=== PATIENT | female | born 1970 | race Caucasian/White ===

== ENCOUNTER 2017-01-02 20:58 | Emergency (ER) | payer MEDICAID ==
[~2017-01-02] VITALS: Ht 167.6 cm; Wt 71.0 kg
[~2017-01-02 20:58] MED LIST: AMO500 PO; DENIES MEDS; HYDR-3498 PO; NAPR-260 PO
[2017-01-02 21:26] VITALS: Ht 167.6 cm; Wt 71.0 kg
[2017-01-02] MEDS ORDERED: IBUPROFEN 600 MG TAB PO ONE (22:30)
--- NOTE | 2017-01-02 23:09 | RADRPT ---
PROCEDURE: XR Left Ankle. CLINICAL INDICATION: Trauma, pain TECHNIQUE: 4 views of the left ankle were performed. COMPARISON: None. FINDINGS: There is lateral soft tissue swelling. No fracture or dislocation is seen. IMPRESSION: Lateral soft tissue swelling. No fracture seen. RPTAT: HJES .Kemar Phillips MD, Date Time Electronically viewed and signed by .Kemar Phillips MD, on 01/02/2017 23:08 .S/
[2017-01-02] MEDS ORDERED: IBUP-1542 PO (23:12)
[2017-01-02] MEDS ORDERED: CEPH-443 PO (23:12)
[2017-01-02] MEDS ORDERED: BACI28.34 TOP (23:12)
--- NOTE | 2017-01-02 23:17 | ERD ---
ER Documentation Chief Complaint Date/Time DATE: 01/02/17 TIME: 23:15 Chief Complaint l ankle pain since tuesday some swelling noted + distal CMS HPI 46-year-old female comes in with left lateral ankle pain that started 3 days ago when she was pulling on a chair and fell onto the side of her ankle then. Since then she has had swelling with bruising, she describes as achy, localized pain, worse with any weightbearing and better at rest. She has had some redness to the ankle. She has not had any fevers or chills. Denies any other injuries. ROS All systems reviewed and are negative except as per history of present illness. Medications Home Meds Active Scripts Bacitracin* (Bacitracin Zinc Oint*) 28.35 Gm Oint, 1 APPLIC TOP BID, #1 TUB APPLI TO Prov:ELDA DURANT PA-C 01/02/17 Cephalexin* (Keflex*) 500 Mg Capsule, 500 MG PO QID for 5 Days, CAP Prov:ELDA DURANT PA-C 01/02/17 Ibuprofen* (Motrin*) 600 Mg Tab, 600 MG PO Q6, #30 TAB Prov:ELDA DURANT PA-C 01/02/17 Naproxen* (Naprosyn*) 500 Mg Tablet, 500 MG PO BID Y for PAIN AND/OR INFLAMMATION, #30 TAB Prov:PAIGE MANCIA PA-C 02/04/16 Hydrocodone Bit-Acetaminophen* ([place]*) 5-325 Mg Tab, 1 TAB PO Q6 Y for PAIN, # 10 TAB Prov:ELDA DURANT PA-C 02/14/15 Amoxicillin* (Amoxicillin*) 500 Mg Cap, 500 MG PO TID for 7 Days, CAP Prov:ELDA DURANT PA-C 02/14/15 Reported Medications [Denies Meds] No Conflict Check 10/27/10 Allergies Allergies: Coded Allergies: No Known Drug Allergy (Verified Allergy, Mild, 02/04/16) PMhx/Soc History of Surgery: Yes (TUBAL LIGATION-3 YRS AGO) Anesthesia Reaction: No Hx Neurological Disorder: No Hx Respiratory Disorders: No Hx Cardiac Disorders: No Hx Psychiatric Problems: No Hx Miscellaneous Medical Probl: No Hx Alcohol Use: No Hx Substance Use: No Hx Tobacco Use: No Physical Exam Vitals Vital Signs Date Time Temp Pulse Resp B/P Pulse Ox O2 Delivery O2 Flow Rate FiO2 01/02/17 21:26 97.6 66 18 136/72 98 Physical Exam General: Well-developed, well-nourished. The patient appears in no acute distress. HEENT: Head is normocephalic, atraumatic. No scleral icterus. Neck: Supple. Nontender. Lungs: Clear to auscultation. Normal air movement. Heart: Regular rate and rhythm. S1 and S2 are normal. No murmurs, gallops, or rubs. Abdomen: Nondistended. Extremities: Patient's left lateral ankle has swelling, there is ecchymosis. There is erythema to the site of the injury. No fluctuance. Achilles is intact. She is able to flex and dorsiflex. Neurologic: Alert and oriented 3. No focal deficits. Normal speech and gait. Skin: Normal turgor. No rash or lesions. Results 24 hrs Current Medications Medications (Trade) Dose Ordered Sig/Man Route PRN Reason Start Time Stop Time Status Last Admin Dose Admin Ibuprofen (Motrin) 600 mg ONCE ONCE PO 01/02/17 22:30 01/02/17 22:31 DC 01/02/17 22:34 DIAGNOSTIC IMAGING REPORT Patient: JESSICA WOODS : 1970 Age: 46 Sex: F MR #: [id number] DOS: 01/02/172221 Ordering MD: ELDA DURANT PA-C Location: [facility] Room/Bed: PROCEDURE: XR Left Ankle. CLINICAL INDICATION: Trauma, pain TECHNIQUE: 4 views of the left ankle were performed. COMPARISON: None. FINDINGS: There is lateral soft tissue swelling. No fracture or dislocation is seen. IMPRESSION: Lateral soft tissue swelling. No fracture seen. RPTAT: HJES .Kemar Phillips MD, Date Time Electronically viewed and signed by .Kemar Phillips MD, on 01/02/2017 23:08 .S/ CC: ELDA DURANT PA-C Procedures/MDM ED course: Patient's left ankle was wrapped with an Nav bandage. Medical decision making: This 46-year-old female comes in with contusion to her left lateral ankle, she states that she was pulling something in the chair fell over hitting the lateral malleolar region. There is no underlying fracture, however there is some significant swelling and ecchymosis associated with erythema. Patient will be given bacitracin to apply topically, and Keflex. She is to recheck the area in 1-2 days. Departure Diagnosis: Primary Impression: Ankle injury Condition: Good Patient Instructions: Contusion, Lower Extremity Additional Instructions: Llame al doctor MAANA y elis jing ELBA PARA DENTRO DE 1-2 BELTRAN.Dgale a la secretaria que nosotros le instruimos hacer esta elba.Avise o llame si rolle condicin se empeora antes de la elba. Regresa aqui si peor o no mejor. ELDA DURANT PA-C Jan 02, 2017 23:17
== END 2017-01-02 23:19 | disposition home or self-care (01) ==
LOC: FTE 20:58
DX: S99.912A Unspecified injury of left ankle, initial encounter (principal); W20.8XXA Other cause of strike by thrown, projected or falling object, initial encounter; Y92.9 Unspecified place or not applicable
CPT/HCPCS: 73610; Z7502; Z7610

== ENCOUNTER 2017-01-24 05:11 | Emergency (ER) | payer MEDICAID ==
[~2017-01-24] VITALS: Ht 167.6 cm; Wt 72.5 kg
[~2017-01-24 05:11] MED LIST changes: +BACI28.34 TOP; +CEPH-443 PO; +IBUP-1542 PO
[2017-01-24 05:27] VITALS: Ht 167.6 cm; Wt 72.5 kg
--- NOTE | 2017-01-24 06:43 | RADRPT ---
PROCEDURE: CT ABDOMEN/PELVIS WITHOUT CONTRAST CLINICAL INDICATION: 46-year-old female with abdominal pain. TECHNIQUE: The study was performed utilizing a [employer] VCT 64-slice CT scanner. Direct axia l sections were obtained through the abdomen and pelvis without the use of intravenous contrast mate rial. Sagittal and coronal reformations were obtained. One or more of the following dose reduction t echniques were utilized: automated exposure control, adjustment of the mA and/or kV according to pat ient's size or use of iterative reconstruction technique. The images were reviewed on a PACS workst [employer]. CTD/vol = 9.1 mGy; Total Exam DLP = 529.3 mGy-cm. COMPARISON: CT abdomen/pelvis February 04, 2016. FINDINGS: The inferior aspects of bilateral breast implants are noted.. There is no evidence for significant pleural effusion. The liver has a normal size and contour without focal areas of abnormal density. No intrahepatic nor extrahepatic biliary ductal dilatation is seen. The gallbladder is distended wit h a small dependent discoid calcified gallstone without significant wall thickening or pericholecyst ic fluid.. The pancreas is without areas of abnormal attenuation. The spleen is identified and has a normal size without abnormal density. The adrenal glands are unremarkable. The kidneys are without abnormal density. No hydroureteronephrosis nor nephroureterolithiasis is evident. The urinary bladd er contains urine. There is mild retained stool identified throughout the colon without evidence for bowel obstruction. The appendix is visualized and is without abnormal thickening or surrounding inf lammatory reaction. The uterus is anteflexed. There is a left ovarian cyst measuring approximately 1.9 x 1.9 x 1.8 cm. There is no significant pelvic free fluid. Surgical clips are seen within the right inguinal soft tissues. The aortoiliac vessels are without aneurysmal dilatation. The osseous s tructures are intact. IMPRESSION: 1. Distended gallbladder with small dependent discoid gallstone. 2. Mild retained stool within the colon without obstruction. 3. No CT evidence for appendicitis. 4. Prominent left ovary with cysts. 5. Surgical clips within the right inguinal region. .Randolph Jones MD, MD Date Time Electronically viewed and signed by .Randolph Jones MD, on 01/24/2017 06:43 .Bree
[2017-01-24 06:57] LABS: BASOPHIL # 0.1 10^3/ul (0.0-0.1); BASOPHILS % 0.6 % (0.0-2.0); EOSINOPHILS # 0.3 10^3/ul (0.0-0.5); EOSINOPHILS % 3.9 % (0.0-7.0); HEMATOCRIT 38.1 % (37.0-47.0); HEMOGLOBIN 12.4 g/dl (12.0-16.0); LYMPHOCYTES # 2.6 10^3/ul (0.8-2.9); MEAN CORPUSCULAR HEMOGLOBIN 27.9 pg (29.0-33.0); MEAN CORPUSCULAR HGB CONC 32.5 g/dl (32.0-37.0); MEAN CORPUSCULAR VOLUME 85.6 fl (82.0-101.0); MEAN PLATELET VOLUME 11.9 fl (7.4-10.4); MONOCYTE # 0.8 10^3/ul (0.3-0.9); MONOCYTES % 9.5 % (0.0-11.0); NEUTROPHIL # 4.8 10^3/ul (1.6-7.5); NEUTROPHILS % 55.4 % (39.0-77.0); PLATELET COUNT 237 10^3/UL (140-415); RED BLOOD COUNT 4.45 10^6/ul (4.20-5.40); RED CELL DISTRIBUTION WIDTH 14.8 % (11.5-14.5); WHITE BLOOD COUNT 8.6 10^3/ul (4.8-10.8)
[2017-01-24 07:01] LABS: ADD UMIC NO; UR ASCORBIC ACID NEGATIVE (NEGATIVE); UR BILIRUBIN (Dip) NEGATIVE (NEGATIVE); UR BLOOD (Dip) NEGATIVE (NEGATIVE); UR CLARITY CLEAR (CLEAR); UR COLOR STRAW (YELLOW); UR GLUCOSE (Dip) NEGATIVE (NEGATIVE); UR KETONES (Dip) NEGATIVE (NEGATIVE); UR LEUKOCYTE ESTERASE (Dip) NEGATIVE Leu/ul (NEGATIVE); UR NITRITE (Dip) NEGATIVE (NEGATIVE); UR SPECIFIC GRAVITY (Dip) 1.003 (1.003-1.030); UR TOTAL PROTEIN (Dip) NEGATIVE (NEGATIVE); UR UROBILINOGEN (Dip) NEGATIVE (NEGATIVE)
[2017-01-24 07:25] LABS: ALBUMIN 4.5 g/dl (3.3-4.9); ALBUMIN/GLOBULIN RATIO 1.4; BILIRUBIN,INDIRECT 0.2 mg/dl (0-1.1); BILIRUBIN,TOTAL 0.2 mg/dl (0.2-1.3); CALCIUM 9.1 mg/dl (8.4-10.2); CREATININE 0.69 mg/dl (0.44-1.00); POTASSIUM 3.3 mmol/L (3.5-5.1); TOTAL PROTEIN 7.7 g/dl (6.1-8.1)
[2017-01-24] MEDS ORDERED: KETOROLAC 30 MG INJ IV STA (07:26)
[2017-01-24] MEDS ORDERED: ONDANSETRON (ODT) 4 MG TAB ODT STA (07:36)
[2017-01-24] MEDS ORDERED: HYDR-906 PO (07:41)
[2017-01-24 08:10] VITALS: BP 124/68; PULSE 71; RESP 20; TEMP 98.2
--- NOTE | 2017-01-24 08:26 | ERD ---
ER Documentation Chief Complaint Date/Time DATE: 01/24/17 TIME: 08:21 Chief Complaint mid abd pain radiating to back since 0200 with n/v, no diarrhea HPI 46-year-old female coming in complaining of abdominal pain 1 day. Patient states the pain comes and goes is very sharp in nature. Rates it a 9 out of 10 in pain. Pain is localized to the upper abdomen with no specific quadrant. Normal urination. Last menstrual period was January 11. Denies changes in bowel movements. No vomiting. Denies chest pain or shortness of breath. Has never had pain like this before. Denies medical problems. NKDA. Denies surgeries, denies smoking ROS All systems reviewed and are negative except as per history of present illness. Medications Home Meds Active Scripts Hydrocodone/Acetaminophen ([place] 5-325 Tablet) 1 Each Tablet, 1 TAB PO Q6H Y for PAIN, #7 TAB Prov:PAIGE MANCIA PA-C 01/24/17 Bacitracin* (Bacitracin Zinc Oint*) 28.35 Gm Oint, 1 APPLIC TOP BID, #1 TUB APPLI TO Prov:EDLA DURANT PA-C 01/02/17 Cephalexin* (Keflex*) 500 Mg Capsule, 500 MG PO QID for 5 Days, CAP Prov:ELDA DURANT PA-C 01/02/17 Ibuprofen* (Motrin*) 600 Mg Tab, 600 MG PO Q6, #30 TAB Prov:ELDA DURANT PA-C 01/02/17 Naproxen* (Naprosyn*) 500 Mg Tablet, 500 MG PO BID Y for PAIN AND/OR INFLAMMATION, #30 TAB Prov:PAIGE MANCIA PA-C 02/04/16 Hydrocodone Bit-Acetaminophen* ([place]*) 5-325 Mg Tab, 1 TAB PO Q6 Y for PAIN, # 10 TAB Prov:ELDA DURANT PA-C 02/14/15 Amoxicillin* (Amoxicillin*) 500 Mg Cap, 500 MG PO TID for 7 Days, CAP Prov:ELDA DURANT PA-C 02/14/15 Reported Medications [Denies Meds] No Conflict Check 10/27/10 Allergies Allergies: Coded Allergies: No Known Drug Allergy (Verified Allergy, Mild, 02/04/16) PMhx/Soc History of Surgery: Yes (TUBAL LIGATION-3 YRS AGO) Anesthesia Reaction: No Hx Neurological Disorder: No Hx Respiratory Disorders: No Hx Cardiac Disorders: No Hx Psychiatric Problems: No Hx Miscellaneous Medical Probl: No Hx Alcohol Use: No Hx Substance Use: No Hx Tobacco Use: No Physical Exam Vitals Vital Signs Date Time Temp Pulse Resp B/P Pulse Ox O2 Delivery O2 Flow Rate FiO2 01/24/17 08:10 98.2 71 20 124/68 97 Room Air 01/24/17 05:27 99.1 65 20 149/67 97 Physical Exam GENERAL: The patient is well-appearing, well-nourished, in no acute distress CHEST: Clear to auscultation bilaterally. There are no rales, wheezes or rhonchi. HEART: Regular rate and rhythm. No murmurs, clicks, rubs or gallops. No S3 or S4. ABDOMEN: Nondistended, soft, surgical scars seen from tummy tuck. No rebound tenderness. Negative McBurney's, negative Chandler's. No organomegaly. BACK: NO CVA tenderness. Result Diagram: 01/24/17 0551 01/24/17 0551 Results 24 hrs Laboratory Tests Test 01/24/17 05:51 White Blood Count 8.610^3/ul Red Blood Count 4.4510^6/ul Hemoglobin 12.4g/dl Hematocrit 38.1% Mean Corpuscular Volume 85.6fl Mean Corpuscular Hemoglobin 27.9pg Mean Corpuscular Hemoglobin Concent 32.5g/dl Red Cell Distribution Width 14.8% Platelet Count 47135^3/UL Mean Platelet Volume 11.9fl Neutrophils % 55.4% Lymphocytes % 30.0% Monocytes % 9.5% Eosinophils % 3.9% Basophils % 0.6% Nucleated Red Blood Cells % 0.0/100WBC Neutrophils # 4.810^3/ul Lymphocytes # 2.610^3/ul Monocytes # 0.810^3/ul Eosinophils # 0.310^3/ul Basophils # 0.110^3/ul Nucleated Red Blood Cells # 0.010^3/ul Urine Color STRAW Urine Clarity CLEAR Urine pH 7.0 Urine Specific [place] 1.003 Urine Ketones NEGATIVEmg/dL Urine Nitrite NEGATIVEmg/dL Urine Bilirubin NEGATIVEmg/dL Urine Urobilinogen NEGATIVEmg/dL Urine Leukocyte Esterase NEGATIVELeu/ul Urine Hemoglobin NEGATIVEmg/dL Urine Glucose NEGATIVEmg/dL Urine Total Protein NEGATIVEmg/dl Sodium Level 142mmol/L Potassium Level 3.3mmol/L Chloride Level 107mmol/L Carbon Dioxide Level 25mmol/L Anion Gap 13 Blood Urea Nitrogen 12mg/dl Creatinine 0.69mg/dl Glucose Level 76mg/dl Calcium Level 9.1mg/dl Total Bilirubin 0.2mg/dl Direct Bilirubin 0.00mg/dl Indirect Bilirubin 0.2mg/dl Aspartate Amino Transf (AST/SGOT) 29IU/L Alanine Aminotransferase (ALT/SGPT) 60IU/L Alkaline Phosphatase 96IU/L Total Protein 7.7g/dl Albumin 4.5g/dl Globulin 3.20g/dl Albumin/Globulin Ratio 1.40 Lipase 45U/L Current Medications Medications (Trade) Dose Ordered Sig/Man Route PRN Reason Start Time Stop Time Status Last Admin Dose Admin Ketorolac Tromethamine (Toradol) 30 mg ONCE STAT IV 01/24/17 07:26 01/24/17 07:27 DC 01/24/17 07:34 Ondansetron HCl (Zofran Odt) 4 mg ONCE STAT ODT 01/24/17 07:36 01/24/17 07:37 DC 01/24/17 07:41 Procedures/MDM DIAGNOSTIC IMAGING REPORT Patient: JESSICA WOODS : 1970 Age: 46 Sex: F MR #: [id number] DOS: 01/24/17 0609 Ordering MD: YESI MANCIA PA-C Location: [facility] Room/Bed: PROCEDURE: CT ABDOMEN/PELVIS WITHOUT CONTRAST CLINICAL INDICATION: 46-year-old female with abdominal pain. TECHNIQUE: The study was performed utilizing a [employer] VCT 64-slice CT scanner. Direct axial sections were obtained through the abdomen and pelvis without the use of intravenous contrast material. Sagittal and coronal reformations were obtained. One or more of the following dose reduction techniques were utilized: automated exposure control, adjustment of the mA and/ or kV according to patient's size or use of iterative reconstruction technique. The images were reviewed on a PACS workstation. CTD/vol = 9.1 mGy; Total Exam DLP = 529.3 mGy-cm. COMPARISON: CT abdomen/pelvis February 04, 2016. FINDINGS: The inferior aspects of bilateral breast implants are noted.. There is no evidence for significant pleural effusion. The liver has a normal size and contour without focal areas of abnormal density. No intrahepatic nor extrahepatic biliary ductal dilatation is seen. The gallbladder is distended with a small dependent discoid calcified gallstone without significant wall thickening or pericholecystic fluid.. The pancreas is without areas of abnormal attenuation. The spleen is identified and has a normal size without abnormal density. The adrenal glands are unremarkable. The kidneys are without abnormal density. No hydroureteronephrosis nor nephroureterolithiasis is evident. The urinary bladder contains urine. There is mild retained stool identified throughout the colon without evidence for bowel obstruction. The appendix is visualized and is without abnormal thickening or surrounding inflammatory reaction. The uterus is anteflexed. There is a left ovarian cyst measuring approximately 1.9 x 1.9 x 1.8 cm. There is no significant pelvic free fluid. Surgical clips are seen within the right inguinal soft tissues. The aortoiliac vessels are without aneurysmal dilatation. The osseous structures are intact. IMPRESSION: 1. Distended gallbladder with small dependent discoid gallstone. 2. Mild retained stool within the colon without obstruction. 3. No CT evidence for appendicitis. 4. Prominent left ovary with cysts. 5. Surgical clips within the right inguinal region. ER Course: IV toradol given in ED. Pain controlled MDM: 46-year-old female coming in complaining of abdominal pain 1 day. I have low suspicion for bowel obstruction. CT scans within normal limits. I have low suspicion for appendicitis as there is no appendiceal dilation seen on exam. Blood work is within normal limits. I have low suspicion for diverticulitis. I have low suspicion for choledocholithiasis, cholecystitis, cholangitis, pancreatitis. Patient's blood work is within normal limits and there is no thickening of the gallbladder seen on CT scan. Patient did not have significant right upper quadrant pain on exam. Patient does have gallstones seen on CT scan which may be contributing to patient's pain. There is no indication for emergent surgery at this time. I have low suspicion for cardiac or pulmonary emergencies. Patient's vital signs are stable patient exam is not concerning. Patient is discharged with pain medication given strict ER precautions to return to the ER symptoms change or worsen. Departure Diagnosis: Primary Impression: Gallstone Condition: Stable Patient Instructions: Gallstones Referrals: COMMUNITY CLINICS YOU HAVE RECEIVED A MEDICAL SCREENING EXAM AND THE RESULTS INDICATE THAT YOU DO NOT HAVE A CONDITION THAT REQUIRES URGENT TREATMENT IN THE EMERGENCY DEPARTMENT. FURTHER EVALUATION AND TREATMENT OF YOUR CONDITION CAN WAIT UNTIL YOU ARE SEEN IN YOUR DOCTORS OFFICE WITHIN THE NEXT 1-2 DAYS. IT IS YOUR RESPONSIBILITY TO MAKE AN APPOINTMENT FOR FOLOW-UP CARE. IF YOU HAVE A PRIMARY DOCTOR --you should call your primary doctor and schedule an appointment IF YOU DO NOT HAVE A PRIMARY DOCTOR YOU CAN CALL OUR PHYSICIAN REFERRAL HOTLINE AT IF YOU CAN NOT AFFORD TO SEE A PHYSICIAN YOU CAN CHOSE FROM THE FOLLOWING [facility] [address] [facility]. [facility] [address] [facility] [facility] [address] [facility] [facility] [address] [facility]. [facility] [address] [facility]. [facility] [address] Additional Instructions: FOLLOW UP WITH YOUR PRIMARY CARE PHYSICIAN TOMORROW.Return to this facility if you are not improving as expected. PAIGE MANCIA PA-C Jan 24, 2017 08:26
== END 2017-01-24 08:11 | disposition home or self-care (01) ==
LOC: FTE 05:11
DX: K80.20 Calculus of gallbladder without cholecystitis without obstruction (principal); R11.2 Nausea with vomiting, unspecified; R10.2 Pelvic and perineal pain
CPT/HCPCS: 36415; 74176; 80053; 81003; 83690; 85025; 96374; J1885; Z7502; Z7610

== ENCOUNTER 2017-08-23 07:15 | Emergency (ER) | END 2017-08-23 10:11 | disposition home or self-care (01) ==